=== PATIENT | female | born 1935 | race Caucasian/White ===

== ENCOUNTER 2021-02-23 06:33 | Inpatient (IN) | payer OTHER ==
[2021-02-19 10:36] LABS: BASOPHILS % (AUTO) 1.1 % (0.0-5.0); EOSINOPHILS % (AUTO) 2.1 % (0.0-8.0); HEMATOCRIT 44.2 % (36-48); LYMPHOCYTES % (AUTO) 22.2 % (21.0-51.0); MEAN CORPUSCULAR HEMOGLOBIN 29.2 pg (27.0-33.0); MEAN CORPUSCULAR HGB CONC 32.1 g/dL (32.0-36.0); MEAN CORPUSCULAR VOLUME 90.8 fL (79-99); MONOCYTES % (AUTO) 8.3 % (3.0-13.0); PLATELET COUNT (AUTO) 262 K/uL (130-400); RED BLOOD CELL COUNT(AUTO) 4.87 MIL/uL (4.00-5.50); RED CELL DISTRIBUTION WIDTH 13.2 % (11.0-15.5)
[2021-02-19 10:43] LABS: APPEARANCE,URINE Clear (CLEAR); BILIRUBIN,URINE Negative (NEGATIVE); COLOR,URINE Dark Yellow (YELLOW); GLUCOSE, URINE (UA) Negative (NEGATIVE); KETONES,URINE Trace mg/dL (NEGATIVE); LEUKOCYTE ESTERASE ,URINE Trace (NEGATIVE); NITRATE,URINE Negative (NEGATIVE); OCCULT BLOOD,URINE Negative (NEGATIVE); PROTEIN,URINE Negative (NEGATIVE)
[2021-02-19 10:44] LABS: POTASSIUM 4.7 mmol/L (3.5-5.1)
[2021-02-19 10:50] LABS: INR 1.05 (0.85-1.15); PROTHROMBIN TIME 11.4 SEC (9.6-11.6)
[2021-02-19 11:05] LABS: BACTERIA,URINE Rare /HPF (None Seen); MUCUS,URINE Rare LPF (None Seen); RBC,URINE 0-1 /HPF (0-1); SQUAMOUS EPITHELIAL CELL,UR Rare /HPF (0-2); WBC,URINE 0-1 /HPF (0-1)
[2021-02-20 13:14] VITALS: BP 139/72
[2021-02-23] VITALS (20 sets, daily range): BP systolic 92–157; BP diastolic 52–78
[~2021-02-23] VITALS: Ht 152.4 cm; Wt 57.6 kg
[~2021-02-23 06:33] MED LIST: ALBU8.5H8 PUFF; TRAM1TAB PO
[2021-02-23] MEDS ORDERED: LACTATED RINGERS 1000ML 1,000 ML IV ONE (06:43)
[2021-02-23] MEDS: CEFAZOLIN SODIUM 1 GM VIAL ONE ×2 (07:10→16:23)
[2021-02-23] MEDS ORDERED: MIDAZOLAM HCL 1 MG/ML 2ML VIAL ONE ×2 (09:48→11:57)
[2021-02-23] MEDS ORDERED: TRANEXAMIC ACID 1000MG/10ML ONE ×2 (09:58→16:04)
[2021-02-23] MEDS ORDERED: CEFAZOLIN SODIUM 1 GM VIAL ONE (09:58)
[2021-02-23] MEDS ORDERED: LIDOCAINE PF 100MG/5ML (2%) SYRINGE 5ML ONE (11:57)
[2021-02-23] MEDS ORDERED: PROPOFOL 10 MG/ML 20ML VIAL IV ONE (11:57)
[2021-02-23] MEDS ORDERED: SUCCINYLCHOLINE CHLORIDE 20 MG/ML 10 ML VIAL ONE (11:57)
[2021-02-23] MEDS ORDERED: ROCURONIUM 10MG/1ML SYR 10 MG/ML ML ONE ×2 (11:58→14:34)
[2021-02-23] MEDS ORDERED: FENTANYL CITRATE PF 50 MCG/1 ML 2ML VIAL ONE ×2 (11:58→18:44)
[2021-02-23] MEDS ORDERED: ESMOLOL HCL 10 MG/ML 10 ML VIAL ONE (12:05)
[2021-02-23] MEDS ORDERED: CEFAZOLIN SODIUM 2 GM VIAL IV ONE (12:23)
[2021-02-23] MEDS ORDERED: CEFAZOLIN SODIUM 1 GM VIAL IRRIG ONE (13:00)
[2021-02-23] MEDS ORDERED: EPHEDRINE SULFATE 50 MG/ML AMPULE ONE ×3 (13:04→16:55)
[2021-02-23] MEDS ORDERED: LABETALOL 20MG VIAL IV ONE (14:01)
[2021-02-23] MEDS ORDERED: DiphenhydrAMINE HCL 50 MG/ML VIAL IVP PRN (17:00)
[2021-02-23] MEDS ORDERED: TRAMADOL HCL 50 MG TABLET PO PRN (17:00)
[2021-02-23] MEDS ORDERED: TEMAZEPAM 15 MG CAPSULE PO PRN (17:00)
[2021-02-23] MEDS ORDERED: LIDOCAINE HCL-MPF 1% 2ML VIAL IV PRN (17:00)
[2021-02-23] MEDS ORDERED: POTASSIUM CHLORIDE 20MEQ/100ML 100 ML IV PRN (17:00)
[2021-02-23] MEDS ORDERED: CALCIUM CARB 500MG PO PRN (17:00)
[2021-02-23] MEDS ORDERED: ONDANSETRON 4MG INJ IVP PRN (17:00)
[2021-02-23] MEDS ORDERED: POTASSIUM CHLORIDE 10% ELIXIR 20 MEQ/15 ML UDCUP PO PRN (17:00)
[2021-02-23] MEDS ORDERED: FERROUS FUMARATE 324 MG TABLET PO PRN (17:00)
[2021-02-23] MEDS ORDERED: OXYCODONE HCL 5 MG TAB PO PRN ×2 (17:00)
[2021-02-23] MEDS ORDERED: KCL 20 MEQ ERTAB PO PRN (17:00)
[2021-02-23] MEDS ORDERED: NEOSTIGMINE 5MG/5ML SYR IV ONE (17:24)
[2021-02-23] MEDS ORDERED: GLYCOPYRROLATE 1 MG/5 ML SYRINGE ONE (17:24)
[2021-02-23] MEDS ORDERED: MEPERIDINE-PF 25 MG/ML SYG ONE ×2 (17:56→18:12)
[2021-02-23] MEDS: KETOROLAC 15MG/ML VIAL (15MG/ML) IV PRN (18:32)
[2021-02-23] MEDS ORDERED: HYDROMORPHONE PCA 10 MG/50 ML 50 ML IV PRN (20:00)
[2021-02-23] MEDS ORDERED: ALBUTEROL INHALER 90MCG/INH IH PRN (21:30)
[2021-02-23] MEDS: CEFAZOLIN SODIUM 1 GM VIAL IVP SCH (21:33)
[2021-02-23] MEDS: ASPIRIN 81 MG EC TAB PO SCH (21:35)
[2021-02-23] MEDS: CELECOXIB 200 MG CAP PO SCH (21:36)
[2021-02-23] MEDS: FAMOTIDINE 20MG TAB PO SCH (21:36)
[2021-02-24] MEDS: ACETAMINOPHEN 500 MG TABLET PO SCH ×3 (01:00→17:56)
[2021-02-24 04:00] VITALS: BP 102/52
[2021-02-24] MEDS: 0.9%NACL 1000ML 1,000 ML IV SCH ×2 (05:23→17:56)
[2021-02-24] MEDS: CEFAZOLIN SODIUM 1 GM VIAL IVP SCH (05:27)
[2021-02-24 05:44] LABS: HEMATOCRIT 25.7 % (36-48); MEAN CORPUSCULAR HEMOGLOBIN 29.3 pg (27.0-33.0); MEAN CORPUSCULAR HGB CONC 32.3 g/dL (32.0-36.0); MEAN CORPUSCULAR VOLUME 90.8 fL (79-99); RED BLOOD CELL COUNT(AUTO) 2.83 MIL/uL (4.00-5.50); RED CELL DISTRIBUTION WIDTH 13.3 % (11.0-15.5); WHITE BLOOD COUNT (AUTO) 15.1 K/uL (4.8-10.8)
[2021-02-24 06:00] LABS: CREATININE 1.2 mg/dL (0.5-1.5); POTASSIUM 4.5 mmol/L (3.5-5.1)
[2021-02-24 08:04] VITALS: BP 108/57
[2021-02-24] MEDS: KETOROLAC 15MG/ML VIAL (15MG/ML) IV PRN (09:35)
[2021-02-24] MEDS: FAMOTIDINE 20MG TAB PO SCH ×2 (09:35→20:24)
[2021-02-24] MEDS: POLYETHYLENE GLYCOL 3350 17 GM POWD.PACK PO SCH (09:35)
[2021-02-24] MEDS: ASPIRIN 81 MG EC TAB PO SCH ×2 (09:35→20:24)
[2021-02-24] MEDS: CELECOXIB 200 MG CAP PO SCH ×2 (09:35→20:24)
[2021-02-24 11:17] VITALS: BP 137/71
[2021-02-24 16:04] VITALS: BP 115/53
[2021-02-24 20:39] VITALS: BP 119/56
[2021-02-24 23:27] VITALS: BP 126/58
[2021-02-25] MEDS: ACETAMINOPHEN 500 MG TABLET PO SCH ×3 (00:55→17:00)
[2021-02-25 05:04] VITALS: BP 149/68
[2021-02-25 07:47] VITALS: BP 123/75
[2021-02-25] MEDS: ASPIRIN 81 MG EC TAB PO SCH ×2 (09:16→19:54)
[2021-02-25] MEDS: CELECOXIB 200 MG CAP PO SCH ×2 (09:16→19:54)
[2021-02-25] MEDS: FAMOTIDINE 20MG TAB PO SCH ×2 (09:16→19:54)
[2021-02-25] MEDS: POLYETHYLENE GLYCOL 3350 17 GM POWD.PACK PO SCH (09:16)
[2021-02-25] MEDS: KETOROLAC 15MG/ML VIAL (15MG/ML) IV PRN (10:11)
[2021-02-25 11:17] VITALS: BP 135/68
[2021-02-25 16:21] VITALS: BP 132/67
[2021-02-25 20:00] VITALS: BP 126/64
[2021-02-26] VITALS: BP 138/73
[2021-02-26] MEDS: ACETAMINOPHEN 500 MG TABLET PO SCH ×2 (01:00→10:39)
[2021-02-26] MEDS: KETOROLAC 15MG/ML VIAL (15MG/ML) IV PRN (03:41)
[2021-02-26 04:00] VITALS: BP 149/70
[2021-02-26 08:10] VITALS: BP 126/70
[2021-02-26] MEDS: POLYETHYLENE GLYCOL 3350 17 GM POWD.PACK PO SCH (09:00)
[2021-02-26] MEDS: FAMOTIDINE 20MG TAB PO SCH (10:39)
[2021-02-26] MEDS: CELECOXIB 200 MG CAP PO SCH (10:39)
[2021-02-26] MEDS: ASPIRIN 81 MG EC TAB PO SCH (10:39)
[2021-02-26] MEDS ORDERED: AEC81 PO (11:08)
[2021-02-26] MEDS ORDERED: HYDR-4060 PO (11:08)
[2021-02-26] MEDS ORDERED: FERR324T10 PO (11:08)
[2021-02-26 11:24] VITALS: BP 128/78
[2021-02-26] MEDS ORDERED: BISACODYL 10 MG SUPP.RECT RC PRN (17:00)
== END 2021-02-26 18:15 | disposition home health service (06) | DRG 470 ==
LOC: DAH 06:33 → DAHIP 06:34 → DAH 06:34 → OBSVTOIN 06:34 → 3AH 19:30
PROVIDERS: ADMIT Orthopaedic Surgery; ATTEND Orthopaedic Surgery
PROC: 0SR9019 Replacement of Right Hip Joint with Metal Synthetic Substitute, Cemented, Open Approach (ICD-10-PCS; principal; 2021-02-23 11:48)
DX: M16.11 Unilateral primary osteoarthritis, right hip (principal); D62 Acute posthemorrhagic anemia; R26.89 Other abnormalities of gait and mobility; Z20.822 Contact with and (suspected) exposure to COVID-19; N18.9 Chronic kidney disease, unspecified; J45.909 Unspecified asthma, uncomplicated; R00.0 Tachycardia, unspecified; G89.29 Other chronic pain; M21.751 Unequal limb length (acquired), right femur; Z96.642 Presence of left artificial hip joint; Z99.89 Dependence on other enabling machines and devices
CPT/HCPCS: 36415; 73503; 80048; 81001; 85014; 85018; 85025; 85027; 85610; 87088; 87635; 87641; 97039; C1776; C9803; G0378; J0330; J0690; J1170; J1885; J2001; J2175; J2250; J2704; J2710; J3010; J3490; J7030; J7120

== ENCOUNTER 2023-06-25 09:02 | Emergency (ER) | payer OTHER ==
[~2023-06-25] VITALS: Ht 154.9 cm; Wt 59.0 kg
[~2023-06-25 09:02] MED LIST changes: -ALBU8.5H8 PUFF; +ATOR20TA65 PO; +CLOP-31 PO; +ENOX60DI7 SQ; +LOSA-417 PO; +METO25TA3 PO; -TRAM1TAB PO; +Warfarin Sodium PO
[2023-06-25 09:46] LABS: BASOPHILS # (AUTO) 0.12 K/uL (0.00-0.20); EOSINOPHILS # (AUTO) 0.49 K/uL (0.00-0.70); HEMATOCRIT 33.4 % (36-48); IMMATURE GRANULOCYTE ABSOLUTE 0.05 K/uL (0-1); LYMPHOCYTES # (AUTO) 1.8 K/uL (1.0-4.8); LYMPHOCYTES % (AUTO) 14.7 % (21.0-51.0); MEAN CORPUSCULAR HEMOGLOBIN 29.5 pg (27.0-33.0); MEAN CORPUSCULAR HGB CONC 32.6 g/dL (32.0-36.0); MEAN CORPUSCULAR VOLUME 90.3 fL (79-99); MONOCYTES # (AUTO) 1.2 K/uL (0.1-1.0); MONOCYTES % (AUTO) 9.6 % (3.0-13.0); NEUTROPHILS # (AUTO) 8.5 K/uL (1.8-7.7); NEUTROPHILS % (AUTO) 70.3 % (40.0-77.0); PLATELET COUNT (AUTO) 370 K/uL (130-400); RED CELL DISTRIBUTION WIDTH 13.2 % (11.0-15.5); WHITE BLOOD COUNT (AUTO) 12.2 K/uL (4.8-10.8)
[2023-06-25 10:00] LABS: ALBUMIN 3.1 g/dL (3.5-5.0); BILIRUBIN,TOTAL 0.9 mg/dL (0.2-1.0); CREATININE 0.9 mg/dL (0.5-1.0); TOTAL PROTEIN, SERUM 7.4 g/dL (6.0-8.3)
[2023-06-25 10:21] LABS: MAGNESIUM 1.9 mg/dL (1.80-2.40)
[2023-06-25] MEDS: ACETAMINOPHEN 500 MG TABLET PO STA (11:05)
[2023-06-25 11:34] LABS: APPEARANCE,URINE CLEAR (CLEAR); BILIRUBIN,URINE NEGATIVE (NEGATIVE); COLOR,URINE LIGHT-YELLOW (YELLOW); GLUCOSE, URINE (UA) NEGATIVE (NEGATIVE); KETONES,URINE 20 mg/dL (NEGATIVE); LEUKOCYTE ESTERASE ,URINE 25 Leu/uL (NEGATIVE); NITRATE,URINE NEGATIVE (NEGATIVE); OCCULT BLOOD,URINE SMALL (NEGATIVE); PH,URINE 5.5 (5.0-8.0); PROTEIN,URINE NEGATIVE (NEGATIVE); UROBILINOGEN,URINE 0.2 mg/dL (0.2-1.0)
[2023-06-25 11:43] LABS: ADD UA MICROSCOPIC YES
[2023-06-25 11:47] LABS: BACTERIA,URINE RARE /HPF (None Seen); MUCUS,URINE RARE LPF (None Seen); SQUAMOUS EPITHELIAL CELL,UR FEW /HPF (0-2)
[2023-06-25] MEDS: CEFTRIAXONE 1G VIAL IVPB STA (12:46)
[2023-06-25 16:00] VITALS: BP 144/67; PULSE 69; RESP 18; O2SAT 98
[2023-06-25] MEDS ORDERED: ACET-2743 PO (16:23)
[2023-06-25] MEDS ORDERED: HYDR-4060 PO (16:23)
[2023-06-25] MEDS ORDERED: MACR100 PO (16:26)
[2023-06-25] MEDS: HYDROCODONE/ACETAMINOPHEN 5/325 MG TAB PO STA (16:39)
== END 2023-06-25 17:05 | disposition home or self-care (01) ==
LOC: EDH 09:02
DX: S30.1XXA Contusion of abdominal wall, initial encounter (principal); N39.0 Urinary tract infection, site not specified; D64.9 Anemia, unspecified; K57.90 Diverticulosis of intestine, part unspecified, without perforation or abscess without bleeding; I10 Essential (primary) hypertension; Z79.899 Other long term (current) drug therapy; Z90.49 Acquired absence of other specified parts of digestive tract; Z90.710 Acquired absence of both cervix and uterus; Z98.890 Other specified postprocedural states; X58.XXXA Exposure to other specified factors, initial encounter; Y93.89 Activity, other specified; Y92.89 Other specified places as the place of occurrence of the external cause; Y99.8 Other external cause status
CPT/HCPCS: 99285; 96374; 72192; 93926; 71045; 83735; 84484; 80053; 85025; 86140; 81001; 36415; 73502; 93005; J0696